=== PATIENT | female | born 1995 | race Hispanic/Latino ===

== ENCOUNTER 2018-03-23 16:52 | Emergency (ER) | payer SELFPAY ==
[2018-03-23] MEDS ORDERED: Lidocaine PF 2% (5 ml) Inj (For Cardiac Arrhy) ONE (17:14)
[2018-03-23] MEDS ORDERED: TDAP Vaccine 0.5 mL Syr IM ONE (17:59)
--- NOTE | 2018-03-23 18:13 | ED PDOC ---
Arrival/HPI - General Historian: Patient - History of Present Illness Narrative History of Present Illness (Text): 03/23/18 18:06 23 year old female, no significant past medical history, presents to the emergency department with a left 2nd toe laceration. Patient states she was in the shower when a piece of glass cut her toe. Patient was bleeding from the site with hemostasis achieved prior to arrival. This has never happened to her before. She did not take anything to alleviate pain. Movement aggravates the toe pain. Denies fever, chills, nausea, vomiting, headache, dizziness, chest pain, palpitations, shortness of breath, cough, hearing or vision changes, or urinary symptoms. Tetanus unknown Time/Duration: Prior to Arrival Symptom Onset: Sudden Symptom Course: Unchanged Quality: Tightness Severity Level: Mild Context: Home <Tommy Jeter - Last Filed: 03/23/18 18:06> <Milo Duncan DO - Last Filed: 03/23/18 18:22> - General Chief Complaint: Abnormal Skin Integrity Time Seen by Provider: 03/23/18 17:59 Past Medical History - Provider Review Nursing Documentation Reviewed: Yes - Psychiatric Hx Psychophysiologic Disorder: No Hx Substance Use: No <Tommy Jeter - Last Filed: 03/23/18 18:06> Family/Social History - Physician Review Nursing Documentation Reviewed: Yes Family/Social History: No Known Family HX Smoking Status: Never Smoked Hx Alcohol Use: No Hx Substance Use: No <Tommy Jeter - Last Filed: 03/23/18 18:06> Allergies/Home Meds <Tommy Jeter - Last Filed: 03/23/18 18:06> <Milo Duncan DO - Last Filed: 03/23/18 18:22> Allergies/Adverse Reactions: Allergies No Known Allergies Allergy (Verified 03/23/18 16:54) Home Medications: Home Meds Medication Instructions Recorded Confirmed Vit #76/Iron,Carb/FA 1 tab PO DAILY 03/23/18 03/23/18 [Prenatabs Rx Tablet] Review of Systems - Physician Review All systems were reviewed & negative as marked: Yes - Review of Systems Constitutional: absent: Fevers Eyes: absent: Vision Changes ENT: absent: Hearing Changes Respiratory: absent: SOB, Cough Cardiovascular: absent: Chest Pain, Palpitations Gastrointestinal: absent: Abdominal Pain, Nausea, Vomiting Genitourinary Female: absent: Dysuria, Hematuria Musculoskeletal: absent: Arthralgias Skin: Laceration Neurological: absent: Headache, Dizziness Endocrine: absent: Diaphoresis <Tommy Jeter - Last Filed: 03/23/18 18:06> Physical Exam Vital Signs Reviewed: Yes Vital Signs Temp Pulse Resp BP Pulse Ox 03/23/18 16:55 97.9 F 109 H 17 117/76 99 Temperature: Afebrile Blood Pressure: Normal Pulse: Tachycardic Respiratory Rate: Normal Appearance: Positive for: Well-Appearing, Non-Toxic, Comfortable Pain Distress: Mild Mental Status: Positive for: Alert and Oriented X 3 - Systems Exam Head: Present: Atraumatic, Normocephalic Pupils: Present: PERRL Extroacular Muscles: Present: EOMI Mouth: Present: Moist Mucous Membranes Respiratory/Chest: Present: Clear to Auscultation, Good Air Exchange. No: Respiratory Distress, Accessory Muscle Use Cardiovascular: Present: Regular Rate and Rhythm, Normal S1, S2. No: Murmurs Abdomen: No: Tenderness, Distention, Peritoneal Signs Skin: Present: Laceration (left 2nd toe laceration, no tendon rupture, decreased sensation distal to laceration, decreased range of motion of left toes) Psychiatric: Present: Alert, Oriented x 3, Normal Insight, Normal Concentration <Tommy Jeter - Last Filed: 03/23/18 18:06> Vital Signs Temp Pulse Resp BP Pulse Ox 03/23/18 16:55 97.9 F 109 H 17 117/76 99 <Milo Duncan DO - Last Filed: 03/23/18 18:22> Medical Decision Making ED Course and Treatment: 03/23/18 18:15 23F, no PMH, presents to ED with left 2nd toe laceration -Wound irrigation -Laceration repair -Bacitracin and dressings applied -Surgical boot Patient to go home with Keflex To follow up in ED or new PMD in [place] for suture removal in 7-10 days Keep wound clean and dry for 48 hours then okay to shower Avoid baths or large bodies of water for 2 weeks Tylenol or Ibuprofen for pain control If symptoms worsen, please return to the ED Patient verbalized understanding and agreement of treatment plan case reviewed and discussed with attending provider - Medication Orders Current Medication Orders: Discontinued Medications Tetanus/Reduced Diphtheria/Acell Pertussis (Boostrix Vaccine Inj) 0.5 ml IM .ONCE ONE Stop: 03/23/18 18:00 <Tommy Jeter - Last Filed: 03/23/18 18:06> ED Course and Treatment: PROCEDURE: LACERATION REPAIR Performed by the emergency provider Location: Left 2nd toe. Length: 3 cm Description: clean wound edges, no foreign bodies. Distal CMS: Normal. No deficits. Neurovascularly intact. Anesthesia: Lidocaine 2% Preparation: The wound was cleaned with NS and [place]. The area was prepped and draped in the usual sterile fashion. Exploration: The wound was explored and no foreign bodies were found. Procedure: The wound was closed with 1 4.0 vicryl subcutaneous interrupted suture and 4 4-0 nylon simple interrupted sutures. There was appropriate and adequate approximation. In total, 5 sutures were used. Post-Procedure: Good closure and hemostasis achieved. The patient tolerated the procedure well and there were no complications. CSM remains intact. Post procedure dressing applied with bacitracin and surgical boot. Patient Seen With Resident: In agreement with resident note. Patient was seen and evaluated with resident, came up with plan and treatment together. - Medication Orders Current Medication Orders: Discontinued Medications Tetanus/Reduced Diphtheria/Acell Pertussis (Boostrix Vaccine Inj) 0.5 ml IM .ONCE ONE Stop: 03/23/18 18:00 <Milo Duncan DO - Last Filed: 03/23/18 18:22> Disposition/Present on Arrival - Present on Arrival Any Indicators Present on Arrival: No History of DVT/PE: No History of Uncontrolled Diabetes: No Urinary Catheter: No History of Decub. Ulcer: No History Surgical Site Infection Following: None - Disposition Have Diagnosis and Disposition been Completed?: Yes Disposition Time: 18:17 Patient Plan: Discharge <Tommy Jeter - Last Filed: 03/23/18 18:06> <Milo Duncan DO - Last Filed: 03/23/18 18:22> - Disposition Diagnosis: Toe laceration Disposition: HOME/ ROUTINE Patient Problems: Current Active Problems Problem Status Onset Toe laceration Acute Condition: IMPROVED Discharge Instructions (ExitCare): Laceration Repair With Stitches (DC), Toe Injury (DC) Additional Instructions: SHEZA PATT, thank you for letting us take care of you today. The emergency medical care you received today was directed at your acute symptoms. If you were prescribed any medication, please fill it and take as directed. It may take several days for your symptoms to resolve. Return to the Emergency Department if your symptoms worsen, do not improve, or if you have any other problems. Please contact your doctor or call one of the physicians/clinics you have been referred to that are listed on the Patient Visit Information form that is included in your discharge packet. Bring any paperwork you were given at discharge with you along with any medications you are taking to your follow up visit. Our treatment cannot replace ongoing medical care by a primary care provider outside of the emergency department. Thank you for allowing the [facility] team to be part of your care today. Keep area clean and dry at all times until the stitches are removed. Follow up with a doctor in 7-10 days for you stitches to be removed. Prescriptions: Cephalexin [cephalexin] 500 mg PO Q8 #21 cap Referrals: Codey Cheng, [Primary Care Provider] - Follow up with primary Forms: [id number] (Romanian)
[2018-03-23 18:20] VITALS: BP 120/75; PULSE 105; RESP 20; TEMP 98; O2SAT 100
== END 2018-03-23 18:26 | disposition home or self-care (01) ==
LOC: ED 16:52
DX: S91.115A Laceration without foreign body of left lesser toe(s) without damage to nail, initial encounter (principal); W25.XXXA Contact with sharp glass, initial encounter; Y93.E1 Activity, personal bathing and showering; Y92.002 Bathroom of unspecified non-institutional (private) residence as the place of occurrence of the external cause; Z23 Encounter for immunization